=== PATIENT | male | born 1970 | race African-American/Black ===

== ENCOUNTER → 2018-07-31 | Outpatient (CLI) | payer BC ==
[~2018-07-31] MED LIST: HYDROCODON-ACE1 EAC7 PO; NOHOMEMEDICATIONS; NORCO 5-325 TA1 EACH PO; PREDNISONE 10 M10 MG PO; PREDNISONE 20 M20 MG PO
== END ==
LOC: MRI 07:38
DX: M47.816 Spondylosis without myelopathy or radiculopathy, lumbar region (principal); M51.27 Other intervertebral disc displacement, lumbosacral region; M48.062 Spinal stenosis, lumbar region with neurogenic claudication

== ENCOUNTER 2018-11-04 10:39 | Emergency (ER) | payer BC ==
[~2018-11-04] VITALS: Ht 182.9 cm; Wt 99.3 kg
[2018-11-04] MEDS ORDERED: FLEXERIL PO (10:52)
[2018-11-04] MEDS ORDERED: ULTRAM 50MG TAB50 MG PO (10:52)
[2018-11-04] MEDS ORDERED: NABUMETONE 750750 M1 PO (10:54)
[2018-11-04] MEDS ORDERED: HYDROCHLOROTH12.5 M1 PO (10:56)
[2018-11-04] MEDS ORDERED: LISINOPRIL10 MG PO (10:56)
[2018-11-04] MEDS ORDERED: CLONIDINE HCL0.3 M3 PO ×2 (10:56)
[2018-11-04] MEDS ORDERED: MEDROLDOSEPACK PO (11:38)
[2018-11-04] MEDS ORDERED: NORCO 10-325 T1 EACH PO (11:38)
[2018-11-04 12:45] VITALS: BP 144/77
== END 2018-11-04 12:47 | disposition home or self-care (01) ==
LOC: ER 10:39
DX: M51.27 Other intervertebral disc displacement, lumbosacral region (principal); M10.9 Gout, unspecified; F17.210 Nicotine dependence, cigarettes, uncomplicated

== ENCOUNTER → 2020-09-23 | Outpatient (CLI) | payer BC ==
[~2020-09-23] VITALS: Ht 185.4 cm; Wt 108.0 kg
[~2020-09-23] MED LIST changes: +ALLOPURINOL 10100 M1 PO; +CLONIDINE HCL0.3 M3 PO; +DULOXETINE HCL30 MG PO; +FLEXERIL PO; +HYDROCHLOROTH12.5 M1 PO; +LISINOPRIL10 MG PO; +MEDROLDOSEPACK PO; +METHOCARBAMOL500 M2 PO; +MITIGARE0.6 MG PO; +NORCO 10-325 T1 EACH PO; +RELAFEN500 M1 PO; +ULTRAM 50MG TAB50 MG PO
[2020-09-23 09:46] VITALS: BP 150/78
--- NOTE | 2020-09-23 10:01 | NUR ---
Pain Clinic Assessment: 1. History of Osteoarthritis: Not Applicable History of Rheumatoid Arthritis: Not Applicable 2. Height: 6 ft. 1 in. 185.4 cm. Weight: 238.0 lb. oz. 107.956 kg. Patient's BMI: 31.4 3. Vital Signs: BP: 150/78 Pulse: 71 Resp: 14 Temp: 02 Sat: 100 ECG Mon: 4. Pain Intensity: 8 5. Fall Risk: Dizziness: N Needs help standing or walking: Y Fallen in the last 3 months: N Fall risk comments: 6. Patient on Blood Thinner: None 7. History of Hypertension: Y 8. Opioid Therapy greater than 6 weeks: N Opiate Contract Signed: 9. Risk Assessment Tool Provided: LOW 10. Functional Assessment Tool: 11. Recreational Drug Use: Past greater than 3 mos Drug Type: MARIJUANIA Tobacco Use: Never Smoker Tobacco Type: Amount or Packs/day: How Many Years: Alcohol Use: No Frequency: Quant:
== END ==
LOC: PAIN 09-04 07:12
PROVIDERS: ATTEND Anesthesiology Pain Medicine
DX: R42 Dizziness and giddiness (principal); M54.5 Low back pain; M79.604 Pain in right leg; Z56.0 Unemployment, unspecified; Z79.899 Other long term (current) drug therapy; Z79.891 Long term (current) use of opiate analgesic

== ENCOUNTER → 2021-02-03 | Outpatient (CLI) | payer BC ==
[~2021-02-03] MED LIST changes: +LISINOPRIL20 MG PO
[2021-02-03 11:11] LABS: HEMATOCRIT 43.8 % (42.0-52.0); HEMOGLOBIN 14.2 gm/dL (14.0-18.0); MCH 29.1 pg (26.0-34.0); MCHC 32.5 g/dL (28.0-37.0); MCV 89.8 fL (80.0-100.0); RBC 4.88 mil/uL (4.50-6.00); RDW 13.9 % (10.5-14.5); WBC 7.5 thou/uL (4.0-11.0)
[2021-02-03 11:15] LABS: URINE BILIRUBIN NEGATIVE (Negative); URINE BLOOD NEGATIVE (Negative); URINE CLARITY CLEAR; URINE COLOR YELLOW; URINE GLUCOSE-RANDOM* NEGATIVE (Negative); URINE KETONES NEGATIVE (Negative); URINE LEUKOCYTES-REFLEX NEGATIVE (Negative); URINE NITRITE-REFLEX NEGATIVE (Negative); URINE PROTEIN (DIPSTICK) NEGATIVE (Negative); URINE SPECIFIC GRAVITY 1.025 (1.005-1.035); URINE UROBILINOGEN 0.2 E.U./dl (0.2-1.0)
[2021-02-03 11:26] LABS: APTT 28.4 Seconds (24.5-32.8); INR 0.98; PROTIME 10.7 Seconds (10.5-12.1)
[2021-02-03 11:29] LABS: ALBUMIN 3.9 g/dL (3.4-5.0); CREATININE 0.9 mg/dL (0.7-1.3); TOTAL BILIRUBIN 0.5 mg/dL (0.2-1.0); TOTAL PROTEIN 7.6 g/dL (6.4-8.2)
--- NOTE | 2021-02-04 07:14 | EKG ---
[place] [address] [facility] [place] [address] ELECTROCARDIOGRAM REPORT Name: MARITZA ALVARADO Room #: [facility] [id number] Admission: 02/03/21 Attend Phys: Taz Mccarty, Discharge: Date of : 68 Report #: [id number] [facility] Test Date: 2021-02-03 Test Time: 11:05:49 Pat Name: MARITZA ALVARADO Department: Room: Gender: M Welding Foreman: KING FERRARI : 1970 Requested By: Taz Mccarty Order Number: [id number] MD: Hardeep Castro Measurements Intervals [place] Rate: 71 P: 47 HI: 209 QRS: 31 QRSD: 93 T: 32 QT: 386 QTc: 420 Interpretive Statements Sinus rhythm Borderline prolonged HI interval ST elev, probable normal early repol pattern Compared to ECG 11/17/2011 16:14:21 ST (T wave) deviation now present Electronically Signed On 02-04-2021 7:14:04 [employer] by Hardeep Castro [email or web address] <ELECTRONICALLY SIGNED> By: Hardeep Castro MD, [facility] 02/04/21 0714 1105 04 Hardeep Castro MD, FACC /EPI
== END ==
LOC: PAC 10:09
PROVIDERS: ATTEND Specialist
DX: M48.02 Spinal stenosis, cervical region (principal)